=== PATIENT | female | born 1945 | race Caucasian/White ===

== ENCOUNTER 2017-05-05 20:35 | Inpatient (IN) | payer MEDICARE, OTHER ==
[~2017-05-05] VITALS: Ht 160 cm; Wt 58.5 kg
[2017-05-05] MEDS ORDERED: PLEASE ENTER ALLERGIES MC SCH (21:00)
[2017-05-05] MEDS ORDERED: LIDOCAINE-MPF 1%, 5ML INFIL ONE (21:00)
[2017-05-05] MEDS ORDERED: LIDOCAINE-MPF 1%, 5ML ONE (21:09)
[2017-05-05] MEDS ORDERED: SODIUM CHLORIDE FLUSH 10ML SYR IVF ONE (22:00)
[2017-05-05 22:15] LABS: BASOPHILS # (AUTO) 0.03 x10^3/uL (0-0.1); BASOPHILS % (AUTO) 0 % (0-1); EOSINOPHILS # (AUTO) 0.21 x10^3/uL (0-0.4); EOSINOPHILS % (AUTO) 2 % (1-7); LYMPHOCYTES # (AUTO) 0.86 x10^3/uL (1-3.4); LYMPHOCYTES % (AUTO) 10 % (22-44); MD NO; MEAN CORPUSCULAR HEMOGLOBIN 28.7 pg (27.0-34.8); MEAN CORPUSCULAR HGB CONC 33.1 g/dL (32.4-35.8); MEAN CORPUSCULAR VOLUME 86.8 fL (80-100); MEAN PLATELET VOLUME 8.4 fL (7.4-10.4); MONOCYTES # (AUTO) 0.58 x10^3/uL (0.2-0.8); MONOCYTES % (AUTO) 6 % (2-9); NEUTROPHILS # (AUTO) 7.38 x10^3/uL (1.8-6.8); NEUTROPHILS % (AUTO) 82 % (42-75); PLATELET COUNT 404 x10^3/uL (130-400); RED BLOOD COUNT 4.06 x10^6/uL (3.82-5.3); RED CELL DISTRIBUTION WIDTH 15.9 % (9.6-15.2)
[2017-05-05 22:21] LABS: INTERNATIONAL NORMALIZED RATIO 0.94 (0.93-1.1); PROTHROMBIN TIME 9.8 Seconds (9.6-11.5)
[2017-05-05 22:23] LABS: ALBUMIN 3.7 g/dL (3.4-5.0); ANION GAP 8 mmol/L (5-15); CALCIUM 8.8 mg/dL (8.5-10.1); CHLORIDE 109 mmol/L (98-107); CREATININE 1.52 mg/dL (0.55-1.02)
[2017-05-05] MEDS ORDERED: ONDANSETRON 2MG/ML, 2ML ONE (22:25)
[2017-05-05] MEDS ORDERED: MORPHINE SULFATE 4 MG/ML, 1ML ONE (22:26)
[2017-05-05] MEDS ORDERED: ONDANSETRON 2MG/ML, 2ML IVPush ONE (23:30)
[2017-05-05] MEDS ORDERED: LABETALOL 5MG/ML, 20ML IVPush PRN (23:30)
[2017-05-05] MEDS ORDERED: MORPHINE SULFATE 4 MG/ML, 1ML IVPush PRN (23:30)
[2017-05-05] MEDS ORDERED: ENALAPRILAT 1.25 MG/ML, 2ML IVPush PRN (23:30)
[2017-05-05] MEDS ORDERED: ACETAMINOPHEN 325 MG TABLET PO PRN (23:30)
[2017-05-05] MEDS ORDERED: ONDANSETRON ODT 4 MG PO PRN (23:30)
[2017-05-05] MEDS ORDERED: ONDANSETRON 2MG/ML, 2ML IVPush PRN (23:30)
[2017-05-05 23:43] LABS: TROPONIN I < 0.015 ng/mL (0.000-0.045)
[2017-05-06] VITALS (7 sets, daily range): BP systolic 103–124; BP diastolic 53–65
[2017-05-06] MEDS: D5%-0.45% NACL 1,000 ML IV SCH ×3 (00:32→15:16)
[2017-05-06 05:05] LABS: MEAN CORPUSCULAR HEMOGLOBIN 28.2 pg (27.0-34.8); MEAN CORPUSCULAR HGB CONC 32.7 g/dL (32.4-35.8); MEAN CORPUSCULAR VOLUME 86.2 fL (80-100); MEAN PLATELET VOLUME 8.4 fL (7.4-10.4); PLATELET COUNT 355 x10^3/uL (130-400); RED BLOOD COUNT 3.35 x10^6/uL (3.82-5.3); RED CELL DISTRIBUTION WIDTH 15.6 % (9.6-15.2)
[2017-05-06 05:14] LABS: CHLORIDE 111 mmol/L (98-107)
[2017-05-06 05:18] LABS: ANION GAP 8 mmol/L (5-15); CALCIUM 8.2 mg/dL (8.5-10.1)
[2017-05-06 05:27] LABS: TROPONIN I < 0.015 ng/mL (0.000-0.045)
[2017-05-06 05:54] LABS: BASOPHILS # (AUTO) 0.04 x10^3/uL (0-0.1); BASOPHILS % (AUTO) 1 % (0-1); EOSINOPHILS # (AUTO) 0.15 x10^3/uL (0-0.4); EOSINOPHILS % (AUTO) 2 % (1-7); LYMPHOCYTES # (AUTO) 1.05 x10^3/uL (1-3.4); LYMPHOCYTES % (AUTO) 12 % (22-44); MONOCYTES # (AUTO) 0.71 x10^3/uL (0.2-0.8); MONOCYTES % (AUTO) 8 % (2-9); NEUTROPHILS # (AUTO) 6.78 x10^3/uL (1.8-6.8); NEUTROPHILS % (AUTO) 78 % (42-75)
[2017-05-06 05:58] LABS: MD SCAN
[2017-05-06 16:23] LABS: MICROSCOPIC NOT IND
[2017-05-06 16:27] LABS: CULTURE INDICATED? NO
[2017-05-07 00:21] VITALS: BP 133/70
[2017-05-07 06:52] VITALS: BP 135/71
[2017-05-07 12:03] VITALS: BP 128/65
== END 2017-05-07 12:19 | DRG 604 ==
LOC: ED 21:51 → EDIP 23:11 → 4WST 23:59
PROVIDERS: ADMIT Internal Medicine; ATTEND Internal Medicine
PROC: 0HQ0XZZ Repair Scalp Skin, External Approach (ICD-10-PCS; principal; 2017-05-05)
DX: S01.01XA Laceration without foreign body of scalp, initial encounter (principal); S06.6X9A Traumatic subarachnoid hemorrhage with loss of consciousness of unspecified duration, initial encounter; D69.1 Qualitative platelet defects; G93.89 Other specified disorders of brain; F03.90 Unspecified dementia, unspecified severity, without behavioral disturbance, psychotic disturbance, mood disturbance, and anxiety; I44.7 Left bundle-branch block, unspecified; G89.11 Acute pain due to trauma; I10 Essential (primary) hypertension; E03.9 Hypothyroidism, unspecified; E78.00 Pure hypercholesterolemia, unspecified; Z86.73 Personal history of transient ischemic attack (TIA), and cerebral infarction without residual deficits; E78.5 Hyperlipidemia, unspecified; M50.30 Other cervical disc degeneration, unspecified cervical region; W01.0XXA Fall on same level from slipping, tripping and stumbling without subsequent striking against object, initial encounter; Y93.89 Activity, other specified; Y92.89 Other specified places as the place of occurrence of the external cause; Y99.8 Other external cause status; Z95.5 Presence of coronary angioplasty implant and graft
CPT/HCPCS: 12032; 36415; 70450; 72125; 80048; 81003; 82040; 84484; 85025; 85610; 85730; 86850; 86900; 93005